=== PATIENT | female | born 1970 | race American Indian/Alaskan Native ===

== ENCOUNTER 2017-07-23 07:31 | Inpatient (IN) | payer OTHER, MEDICAID ==
[2017-07-23] MEDS ORDERED: LACTATED RINGERS 1,000 ML IV ONE (07:35)
[2017-07-23] MEDS ORDERED: BRETHINE SUB-Q ONE (07:36)
[2017-07-23] MEDS ORDERED: ePHEDrine SULFATE IV PRN (07:51)
[2017-07-23] MEDS ORDERED: NARCAN 2 MG/2 ML IV PRN (07:51)
[2017-07-23] MEDS ORDERED: fentaNYL-BUPIV 2 MCG/ML-0.125% 200 MCG/100 ML BAG EPIDURAL SCH (08:00)
--- NOTE | 2017-07-23 08:10 | History and Physical Report ---
History of Present Illness Date of examination: 07/23/17 Date of admission: 07/23/17 07:31 History of present illness: 46 yo LMP EDC 08/09/17 @ 37.4 weeks gestation presents to for External Cephalic Version with possibility of C/S if needed. First trimester entry into care at 10 weeks gestation. course complicated by hypothyroidism. She is advanced Maternal age, however she is a IVF patient with 30 yo donor egg. IVF initially with twin with SAB of twin one. Previous 9 lb delivery with early GCT , elevated second trimester GCT with NL 3hr GTT. +. Seen by [facility] for comang't. Noted to have femur length of 2%. Past History Past Medical History: thyroid disease, other (+) Past Surgical History: no surgical history Family/Genetic History: cancer, sickle cell/trait Social history: - Obstetrical History Expected Date of Delivery: 08/09/17 Actual Gestation: 37 Week(s) 4 Day(s) : 4 Para: 3 Number of Living Children: 3 Medications and Allergies Allergies Allergy/AdvReac Type Severity Reaction Status Date / Time No Known Allergies Allergy Verified 07/23/17 07:52 Active Meds: Active Medications Ephedrine Sulfate (Ephedrine Sulfate) 10 mg IV Q2M PRN PRN Reason: Hypotension Lactated Ringer's (Lactated Ringers) 1,000 mls @ 999 mls/hr IV BOLUS ONE Stop: 07/23/17 08:35 Fentanyl/Bupivacaine/Sodium Chlor (Fentanyl-Bupiv 2 Mcg/Ml-0.125%) 200 mcg in 100 mls @ 12 mls/hr EPIDURAL TITR ANT PRN Reason: Protocol Naloxone HCl (Narcan 2 Mg/2 Ml) 0.2 mg IV Q5M PRN PRN Reason: Respiratory sedation Review of Systems All systems: negative - Vital Signs Vital signs: Vital Signs Pulse BP 93 H 132/96 07/23/17 08:03 07/23/17 08:03 Temp Pulse Resp BP Pulse Ox 93 H 132/96 07/23/17 08:03 07/23/17 08:03 - Obstetrical FHR: category 1 Uterine Contraction Monitor Mode: External Uterine Contraction Pattern: Absent Uterine Tone Measurement Phase: Resting Results All other labs normal. Assessment and Plan A: IUP at 37.4 weeks gestation Malpresentation-Breech(confirmed with U/S at ) P: ECV by Primary C/S for distress
[2017-07-23 08:17] LABS: Basophils % (Auto) 0.3 % (0.0-1.8); Eosinophils # (Auto) 0.1 K/mm3 (0.0-0.4); Eosinophils % (Auto) 1.2 % (0.0-4.3); Hematocrit 41.3 % (30.3-42.9); Lymphocytes # (Auto) 1.6 K/mm3 (1.2-5.4); Lymphocytes % (Auto) 24.4 % (13.4-35.0); Mean Corpuscular HGB Conc 34 % (30-34); Mean Corpuscular Hemoglobin 30 pg (28-32); Mean Corpuscular Volume 88 fl (79-97); Monocytes # (Auto) 0.6 K/mm3 (0.0-0.8); Monocytes % (Auto) 8.9 % (0.0-7.3); Platelet Count 248 K/mm3 (140-440); Red Cell Distribution Width 14.9 % (13.2-15.2)
--- NOTE | 2017-07-23 13:20 | Operative Report ---
Operative Report Operative Report: Date of procedure: July, Pre-operative diagnosis: at 37+4 weeks; breech presentation Post-operative diagnosis: Same as above Procedure name(s): External cephalic version Surgeon: Sakina Rudd M.D. Computer Engineering Technician: Mercy Reyes CNM Estimated blood loss: None Anesthesia: Epidural Indication: 46-year-old at 37+4 weeks who presents in breech presentation for an external cephalic version. Procedure The patient was placed in an LDR an epidural was placed without difficulty. The patient was given terbutaline subcutaneously prior to the procedure. The patient was thoroughly counseled to the risk and benefits of the procedure. An ultrasound procedure was performed to confirm breech presentation with the back on the patient's left maternal side. The nonstress test was noted to be a category 1 tracing. The head was isolated externally and with elevation of the fetus' buttocks, an attempt was made to externally rotate the fetus with a forward roll. The fetus was monitored after each subsequent attempt. Multiple attempts were made at the version without success. The patient tolerated the procedure without difficulty. The patient underwent prolonged monitoring after the procedure. The patient will be scheduled for a primary delivery.
[2017-07-23] MEDS ORDERED: BICITRA PO ONE (15:23)
[2017-07-23] MEDS ORDERED: PEPCID IV ONE (15:23)
[2017-07-23] MEDS ORDERED: REGLAN IV ONE (15:23)
[2017-07-23] MEDS ORDERED: LACTATED RINGERS 1,000 ML ONE (15:37)
[2017-07-23] MEDS ORDERED: ANCEF/STERILE WATER 2 GM/20 ML 2 GM/20 ML SYRINGE IV NR (16:00)
[2017-07-23] MEDS ORDERED: LACTATED RINGERS 1,000 ML IV SCH (16:00)
[2017-07-23] MEDS ORDERED: PITOCin/NS 20 UNIT/1000ML DRIP 20 UNITS/1,000 ML BAG IV SCH ×2 (16:00→19:00)
[2017-07-23] MEDS ORDERED: ANCEF/STERILE WATER 2 GM/20 ML IV ONE (17:20)
[2017-07-23] MEDS ORDERED: NACL 0.9% IR ONE (17:20)
[2017-07-23] MEDS ORDERED: WATER FOR IRRIG STERILE IR ONE (17:20)
[2017-07-23] MEDS ORDERED: XYLOCAINE MPF 2% ONE ×4 (17:26→17:42)
[2017-07-23] MEDS ORDERED: METHERGINE IM ONE ×2 (18:00→21:41)
[2017-07-23] MEDS ORDERED: MORPHINE ONE (18:20)
--- NOTE | 2017-07-23 18:20 | Procedure Note ---
OB Delivery Note - Delivery Date of Delivery: 07/23/17 Surgeon: CALOS CANNON Estimated blood loss: other (1500ml) - Section Preop diagnosis: other malpresentation Postop diagnosis: same section procedure: section, primary low transverse Disposition: PACU Complications: uterine atony - Infant A at 1 minute: 9 at 5 minutes: 9 Infant Gender: Female (weight 6 lbs. 5 oz.)
[2017-07-23] MEDS ORDERED: TORADOL IV PRN (18:26)
[2017-07-23] MEDS ORDERED: NARCAN 0.4 MG/1 ML IV PRN (18:26)
[2017-07-23] MEDS ORDERED: TUCKS PAD TP PRN (18:26)
[2017-07-23] MEDS ORDERED: ZOFRAN IV PRN (18:26)
[2017-07-23] MEDS ORDERED: PERCOCET 5/325 PO PRN (18:26)
[2017-07-23] MEDS ORDERED: MYLICON PO PRN (18:26)
[2017-07-23] MEDS ORDERED: MILK OF MAGNESIA PO PRN (18:26)
[2017-07-23] MEDS ORDERED: LANSINOH TP PRN (18:26)
--- NOTE | 2017-07-23 18:26 | Operative Report ---
Operative Report Operative Report: Date of surgery: 07/23/2017 Preoperative diagnosis: @ 37+4 weeks; breech presentation; spontaneous rupture membranes Postoperative diagnosis: Same as above; uterine atony Procedure: Primary low transverse delivery Surgeon: Sakina Rudd M.D. Anesthesia: Regional Estimated blood loss: 1500 mL Findings: Liveborn female with Apgars of 9 and 9 weight 6 lbs. 5 oz. and breech presentation Indications: 46-year-old at 37+4 weeks who presented for an external cephalic version for breech presentation. The patient underwent the procedure however the procedure was unsuccessful and we were unable to transition the fetus to a vertex presentation. During the patient's postprocedure observation she had spontaneous rupture of membranes. Procedure: The patient was taken to the operating room and given regional anesthesia without complication. She was prepped and draped in a normal sterile fashion. A Pfannenstiel skin incision was made down to layer the fascia which was nicked in the midline extended laterally with the Bovie cautery. The superior aspect of the rectus fascia was grasped with Boody clamps x2 and the rectus muscles off sharply. This was done in inferior fashion as well. The rectus muscle midline and peritoneum entered bluntly. An Sarmad retractor was then inserted. A bladder blade was placed. The vesicouterine peritoneum was then entered sharply with Metzenbaum scissors. A bladder flap was created digitally. A low transverse uterine incision was then made and extended digitally. There was clear fluid upon entry into the uterine cavity. The legs were delivered through the incision with fundal pressure. The infant's body was grasped with a moist cloth. The arms were delivered with Pinard maneuver. The head was delivered with fundal pressure. The cord was clamped and cut x2 and infant was passed off to pediatrics. The placenta was then manually extracted. The uterus was then exteriorized and cleared of clots and debris. The uterine incision was then closed in a running locked fashion with 0 Vicryl additional imbricating stitch was applied for 2 layer closure. The serosa was then reapproximated with 3-0 Vicryl. During the uterine closure, the uterus was noted to be atonic. The patient received Methergine intramuscularly during the procedure. The posterior cul-de-sac was then copiously irrigated. The uterus was replaced back into the abdomen and pelvis were the gutters were then irrigated. The Sarmad retractor was then removed. The peritoneum was then reapproximated with 3-0 Vicryl incorporating the rectus muscle. The fascia was then closed with 0 Vicryl in a running fashion. The skin was then reapproximated with 3-0 Monocryl on a Willis needle subcuticular fashion. Steri-Strips to place across the incision and a Crede procedures performed at the end of the surgery. A pressure dressing was applied to the incision. The surgery productive of a liveborn female infant with Apgars of 9 and 9 weight 6 lbs. 5 oz. The patient was taken to the recovery room in stable condition. All sponge laps and needle counts correct x2.
[2017-07-23] MEDS ORDERED: NACL 0.9% 1000 ML 1,000 ML ONE (18:31)
[2017-07-23] MEDS ORDERED: SODIUM CHLORIDE FLUSH SYRINGE 10 ML IV NR (19:00)
--- NOTE | 2017-07-23 19:49 | Post Anesthesia Evaluation ---
- Post Anesthesia Evaluation Patient Participated: Yes Airway Patent: Yes Stable Respiratory Function: Yes Temp > 96.8F: Yes Pain Manageable: Yes Adequeate Hydration: Yes Anesthesia Complications: No Block Receding Appropriately: Yes
[2017-07-23] MEDS: D5LR 1,000 ML IV SCH (22:16)
[2017-07-24] MEDS: D5LR 1,000 ML IV SCH (05:50)
[2017-07-24 07:04] LABS: Hematocrit 34.3 % (30.3-42.9); Hemoglobin 11.7 gm/dl (10.1-14.3)
[2017-07-24] MEDS: PERCOCET 5/325 PO PRN ×3 (09:17→20:00)
--- NOTE | 2017-07-24 09:18 | Progress Note ---
Assessment and Plan A: POD#1 s/p primary section at term complicated by uterine atony and hemorrhage Morbid Obesity P: Optimize pain regimen. Abdominal binder . Encourage ambulation Continue to monitor clinical status. Subjective - Subjective Date of service: 07/24/17 Principal diagnosis: POD#1 s/p primary at term, obesity Interval history: Pt c/o suboptimal pain control. Otherwise no complaints. Patient reports: appetite normal, pain poorly controlled, no voiding normally ( foely just removed ), no flatus, no bowel movement, no ambulating normally ( SCDs just removed ) [place]: doing well Objective - Vital Signs Latest vital signs: Vital Signs Temp Pulse Resp BP BP Pulse Ox 07/24/17 05:50 98.2 F 85 20 97 07/24/17 00:15 98.0 F 95 H 20 118/81 97 07/23/17 20:58 97.7 F 85 20 137/88 97 07/23/17 19:30 75 22 132/85 98 07/23/17 19:25 98.0 F 07/23/17 19:20 75 22 131/87 98 07/23/17 19:10 75 21 125/86 98 07/23/17 19:00 69 21 122/81 98 07/23/17 18:50 15 119/82 99 07/23/17 18:40 21 115/74 97 07/23/17 18:32 78 21 96 07/23/17 18:30 97.0 F L 07/23/17 17:11 112 H 98 07/23/17 17:06 111 H 97 07/23/17 17:01 113 H 97 07/23/17 16:56 108 H 98 07/23/17 16:51 109 H 98 07/23/17 16:46 109 H 97 07/23/17 16:41 110 H 97 07/23/17 16:36 116 H 97 07/23/17 16:31 110 H 97 07/23/17 16:26 114 H 98 07/23/17 16:21 110 H 97 07/23/17 16:16 112 H 98 07/23/17 16:11 117 H 97 07/23/17 16:06 104 H 97 07/23/17 16:01 114 H 97 07/23/17 15:56 111 H 96 07/23/17 15:51 107 H 97 01/16/18 15:46 110 H 126/78 97 16/18 15:36 117 H 94 16/18 15:31 108 H 97 16/18 15:26 106 H 98 16/18 15:25 105 H 126/79 16/18 15:21 100 H 98 1618 15:16 112 H 98 16/18 15:11 113 H 137/78 99 1618 15:09 51 L 87 18 15:06 100 H 99 1618 15:01 98 H 99 18 14:56 104 H 100 18 14:55 100 H 117/72 18 14:51 101 H 99 18 14:46 98 H 99 18 14:41 99 H 117/73 100 18 14:36 98 H 100 18 14:31 98 H 99 18 14:27 101 H 0 L 07/23/17 14:26 98 H 116/67 97 07/23/18 14:21 102 H 100 18 14:16 103 H 98 18 14:11 96 H 96 18 14:10 99 H 112/70 18 14:06 104 H 98 18 14:01 103 H 98 18 13:56 102 H 97 18 13:55 105 H 110/79 16/18 13:51 95 H 97 16/18 13:46 112 H 98 18 13:41 95 H 97 16/18 13:40 103 H 117/78 18 13:36 102 H 96 1618 13:31 105 H 97 16/18 13:26 109 H 95 16/18 13:25 107 H 118/73 1618 13:21 105 H 96 16/18 13:16 116 H 97 1618 13:10 121 H 108/59 1618 13:05 124 H 91 1618 13:03 105 H 0 L 07/23/17 13:00 92 H 98 18 12:55 92 H 135/73 97 07/23/17 12:51 94 H 94 07/23/17 12:50 89 94 07/23/17 12:45 93 H 95 07/23/17 12:44 98.9 F 18 07/23/17 12:40 105 H 146/63 94 07/23/17 12:39 100 H 94 07/23/17 12:38 90 127/79 07/23/17 12:36 86 127/76 07/23/17 12:35 87 95 07/23/17 12:34 85 128/74 92 07/23/17 12:32 86 134/78 07/23/17 12:30 86 128/77 100 07/23/17 12:28 81 128/78 07/23/17 12:26 65 137/85 07/23/17 12:25 65 100 07/23/17 12:24 61 18 137/85 07/23/17 12:22 80 82/64 07/23/17 12:21 70 76/51 07/23/17 12:20 62 99 07/23/17 12:19 56 L 70/41 07/23/17 12:18 64 68/40 07/23/17 12:16 95 H 70/39 07/23/17 12:15 95 H 95 07/23/17 12:14 112 H 109/59 07/23/17 12:12 115 H 130/77 07/23/17 12:10 115 H 119/76 96 07/23/17 12:08 102 H 126/84 07/23/17 12:06 49 L 129/74 93 07/23/17 12:05 99 H 98 07/23/17 12:04 96 H 128/73 07/23/17 12:02 101 H 128/83 07/23/17 12:00 87 97 07/23/17 11:55 91 H 97 07/23/17 11:47 83 128/82 07/23/17 11:32 93 H 132/88 07/23/17 11:17 88 132/82 07/23/17 11:02 93 H 129/87 07/23/17 10:49 77 120/81 07/23/17 10:33 76 129/84 07/23/17 10:17 76 120/81 07/23/17 10:03 78 127/81 07/23/17 09:49 81 134/86 07/23/17 09:34 83 133/86 Intake and Output 07/23/17 07/24/17 07/24/17 22:59 06:59 14:59 Intake Total 0 1305.833 Output Total 575 900 Balance 1475 405.833 Intake: IV 2049 945.833 D5lr 1,000 ml @ 125 mls/ 945.833 hr IV DIRECT ANT Rx#: [id number] Oral 360 Output: Urine 575 900 Indwelling Catheter 400 900 Other: Total, Intake Amount 240 Total, Output Amount 400 600 - Exam Breasts: Present: deferred Cardiovascular: Present: Regular rate Lungs: Present: Clear to auscultation Abdomen: Present: soft, distention (mild), normal bowel sounds Uterus: Present: fundal height at umbilicus Extremities: Present: edema (trace ) Incision: Present: dressed
[2017-07-24] MEDS: MOTRIN PO PRN (13:28)
[2017-07-25] MEDS: MOTRIN PO PRN ×3 (01:00→15:48)
--- NOTE | 2017-07-25 08:29 | Progress Note ---
Assessment and Plan O: VSS 11.7/34.3 A: Stable POD #2 S/P primary C/S for malpresentation breech PPROM at term Failed ECV Hypothyroidism P: Synthyroid 50mcg QD Continue routine PP orders Subjective - Subjective Date of service: 07/25/17 Principal diagnosis: POD#1 s/p primary at term, obesity Interval history: 46 yo LMP EDC 08/09/17 @ 37.4 weeks gestation presents to for External Cephalic Version with possibility of C/S if needed. First trimester entry into care at 10 weeks gestation. course complicated by hypothyroidism. She is advanced Maternal age, however she is a IVF patient with 30 yo donor egg. IVF initially with twin with SAB of twin one. Previous 9 lb delivery with early GCT , elevated second trimester GCT with NL 3hr GTT. +. Seen by [facility] for comang't. Noted to have femur length of 2%. Patient reports: appetite normal, voiding normally, pain well controlled, flatus , ambulating normally : doing well, nursing well, bottle feeding Objective - Vital Signs Latest vital signs: Vital Signs Temp Pulse Resp BP Pulse Ox 07/25/17 06:26 18 07/25/17 02:00 18 07/25/17 01:00 18 07/24/17 23:50 97.7 F 94 H 20 118/73 97 07/24/17 21:00 18 07/24/17 20:00 18 07/24/17 17:50 98 F 82 20 117/76 07/24/17 09:30 98.4 F 98 H 20 120/82 96 Intake and Output 07/24/17 07/25/17 07/25/17 22:59 06:59 14:59 Intake Total 120 360 Output Total 600 Balance -480 360 Intake: Oral 120 360 Output: Urine 600 Void 600 Other: Total, Intake Amount 120 120 Total, Output Amount 600 # Voids Void 1 1 - Exam Breasts: Present: normal, Lungs: Present: Normal air movement Abdomen: Present: normal appearance, soft, normal bowel sounds. Absent: distention, tenderness Vulva: both: normal Uterus: Present: normal, firm, fundal height below umbilicus. Absent: bogginess , tenderness Extremities: Present: normal Incision: Present: normal, dry, intact
[2017-07-25] MEDS ORDERED: LEVAQUIN PO SCH (09:00)
[2017-07-25] MEDS ORDERED: PRENATAL VITAMIN PO ONE (10:00)
[2017-07-25] MEDS: PERCOCET 5/325 PO PRN ×3 (10:55→22:45)
[2017-07-26] MEDS: SYNTHROID PO SCH ×2 (05:58→05:59)
[2017-07-26] MEDS ORDERED: SYNTHROID PO SCH (06:00)
--- NOTE | 2017-07-26 08:18 | Progress Note ---
Assessment and Plan A/P POD#3 failed external version breech doing well ambulating well breast feeding pain controlled bleeding decreased cadnidate for d/c home today with f/u in 2 weeks Subjective - Subjective Date of service: 07/26/17 Principal diagnosis: POD#1 s/p primary at term, obesity Patient reports: appetite normal, voiding normally, pain well controlled, flatus , ambulating normally [place]: doing well, nursing well Objective - Vital Signs Latest vital signs: Vital Signs Temp Pulse Resp BP BP Pulse Ox 07/26/17 00:28 98.0 F 72 20 114/70 98 07/25/17 23:45 16 07/25/17 22:45 16 07/25/17 17:54 97.9 F 72 18 131/78 07/25/17 08:29 97.6 F 78 18 140/89 Intake and Output 07/25/17 07/26/17 07/26/17 23:59 07:59 15:59 Intake Total 600 480 Balance 600 480 Intake: Oral 240 120 Intake, Free Water 360 360 Other: Total, Intake Amount 240 120 # Voids Void 1 - Exam Breasts: Present: normal Cardiovascular: Present: Regular rate, Normal S1 Lungs: Present: Clear to auscultation, Normal air movement Abdomen: Present: normal appearance, soft, normal bowel sounds. Absent: distention, tenderness, guarding Vulva: both: normal Uterus: Present: normal, firm, fundal height below umbilicus. Absent: bogginess , tenderness Extremities: Present: normal Deep Tendon Reflex Grade: Normal +2 Incision: Present: normal, dry, intact
--- NOTE | 2017-07-26 08:19 | Discharge Summary ---
Providers - Providers Date of Admission: 07/23/17 07:31 Date of discharge: 07/26/17 Attending physician: CARLITOS BARLOW Primary care physician: CARLITOS BARLOW Hospitalization Reason for admission: rupture of membranes Procedure: section, primary low transverse Episiotomy: none Laceration: none Incision: normal, dry, intact Other procedures: none complications: none Discharge diagnosis: IUP at term delivered baby: female Condition at discharge: Good Disposition: DC-01 TO HOME OR SELFCARE Plan - Discharge Medications Prescriptions: Docusate Sodium [Colace] 100 mg PO BID PRN #30 capsule PRN Reason: Constipation Ibuprofen [Motrin] 800 mg PO Q8HR PRN #30 tablet PRN Reason: Pain oxyCODONE /ACETAMINOPHEN [Percocet 5/325] 1 tab PO Q6HR PRN #40 tablet PRN Reason: Pain oxyCODONE /ACETAMINOPHEN [Percocet 5/325] 1 tab PO Q6HR PRN #30 tablet PRN Reason: Pain - Provider Discharge Summary Activity: routine, no sex for 6 weeks, no strenuous exercise Diet: routine Instructions: routine Additional instructions: [] Smoking cessation referral if applicable(refer to patient education folder for contact #) [] Refer to [facility] Booklet Call your doctor immediately for: * Fever > 100.5 * Heavy vaginal bleeding ( >1 pad per hour) * Severe persistent headache * Shortness of breath * Reddened, hot, painful area to leg or breast * Drainage or odor from incision. * Keep incision clean and dry at all times and follow doctor's instructions regarding bathing/showering - Follow up plan Follow up: CARLITOS BARLOW MD [Primary Care Provider] - 14 Days
[2017-07-26] MEDS: PERCOCET 5/325 PO PRN ×2 (08:26→14:30)
[2017-07-26] MEDS: MOTRIN PO PRN ×2 (08:27→14:30)
[2017-07-26 10:13] VITALS: BP 122/78
== END 2017-07-26 15:00 | disposition home or self-care (01) | DRG 766 ==
LOC: LD 07:31 → APU 16:12 → OB 21:10
PROVIDERS: ADMIT Obstetrics & Gynecology; ATTEND Obstetrics & Gynecology
PROC: 10D00Z1 Extraction of Products of Conception, Low, Open Approach (ICD-10-PCS; principal; 2017-07-23)
DX: O32.1XX0 Maternal care for breech presentation, not applicable or unspecified (principal); O99.284 Endocrine, nutritional and metabolic diseases complicating childbirth; E07.9 Disorder of thyroid, unspecified; O62.2 Other uterine inertia; O77.9 Labor and delivery complicated by fetal stress, unspecified; Z3A.37 37 weeks gestation of pregnancy; Z37.0 Single live birth
CPT/HCPCS: 36415; 85014; 85018; 85025; 86850; 86900; 86901; 99211; A6250; G0463; J0690; J1885; J2210; J2270; J2590; J2765; J3105; J7030; J7120; J7121